=== PATIENT | female | born 1955 | race African-American/Black ===

== ENCOUNTER → 2017-03-30 | Outpatient (CLI) | payer SELFPAY ==
[~2017-03-30] MED LIST: Norvasc PO; Zantac PO
== END | disposition home or self-care (01) ==
LOC: RAD 09:32
DX: M25.461 Effusion, right knee (principal); M79.604 Pain in right leg
CPT/HCPCS: 73564; 93971

== ENCOUNTER 2018-01-08 14:17 | Emergency (ER) | payer BC ==
[~2018-01-08] VITALS: Ht 157.5 cm; Wt 95.3 kg
[2018-01-08] MEDS ORDERED: KEFLEX500 MG PO (15:02)
[2018-01-08] MEDS ORDERED: MOTRIN800 MG PO (15:02)
[2018-01-08 15:31] VITALS: BP 142/88
== END 2018-01-08 15:32 | disposition home or self-care (01) ==
LOC: EME 14:17
DX: K12.2 Cellulitis and abscess of mouth (principal); I10 Essential (primary) hypertension; K21.9 Gastro-esophageal reflux disease without esophagitis
CPT/HCPCS: 99281; 99283